=== PATIENT | female | born 1945 | race Caucasian/White ===

== ENCOUNTER 2017-12-26 05:14 | Inpatient (IN) ==
--- NOTE | 2017-12-21 17:39 | MH ---
cc: Ta Reyes MD DATE OF ADMISSION: 12/26/2017 Lolis Grijalva she is scheduled to be admitted to the hospital on 12/26/2017. ADMITTING DIAGNOSIS: Full-thickness rotator cuff tear of the right shoulder with associated osteoarthritis. HISTORY: The patient is a 72-year-old white female who has experienced almost a 3-year history of pain involving her right shoulder area. She has noted the gradual onset of soreness about the shoulder area unrelated to injury or unusual activity. She has undergone initial evaluation with her primary care physician who prescribed physical therapy and thereafter began to note increasing symptoms about the shoulder area for which she later underwent rheumatology evaluation for a history of rheumatoid arthritis and fibromyalgia. She was diagnosed as having bursitis and arthritis about her right shoulder area for which she was treated with cortisone injection that did prove to be of temporary benefit. Unfortunately, her symptoms recurred several months thereafter, at which time she received a repeat injection to the shoulder region. Further disposition was completed by her primary care physician, who referred the patient for neurology evaluation. She was found not to have any significant neurological disorder and a recommendation was thus made for physiatry evaluation. The patient later underwent MRI scan evaluation of her right shoulder, the results of which identified a 2.4 cm full-thickness tear of the distal anterior fibers of the supraspinatus tendon. There was marked thinning of the remaining portion of the supraspinatus tendon as well as marked thinning of the infraspinatus tendon with a high-grade partial tear of the subscapularis tendon. The teres minor was intact. Cystic changes along the lateral edge of the acromion were noted with mild chondral thinning of the glenoid and marked hypertrophy of the acromioclavicular joint. The biceps tendon was torn from its origin. The patient was subsequently seen by the undersigned physician in February 2017 and at that time reported ongoing discomfort involving her right shoulder area. The patient was treated with a repeat cortisone injection about the shoulder area and thereafter followed on an outpatient basis. Unfortunately, her symptoms became more pronounced with the passage of time, and when seen in followup disposition additional treatment options were reviewed. The pros and cons of continuing with conservative management versus operative intervention that would involve reverse shoulder arthroplasty were outlined. Emphasis was made regarding the fact that the decision to proceed with surgery would be left entirely to the patient's discretion. The patient considered her options in this regard and subsequently expressed her desire to proceed accordingly for which she is currently being admitted to the hospital. She is right hand dominant. PAST MEDICAL HISTORY: Hospitalizations and surgeries have included right total knee arthroplasty, abdominal hysterectomy, cystocele repair, bladder suspension, arthroscopic surgery of the left knee, followed by hemiarthroplasty, partial colon resection for endometriosis, tonsillectomy, bunionectomy of the right foot with first metatarsal osteotomy, arthrodesis of the 2nd toe and repair of a plantar plate rupture of the second metatarsophalangeal joint, upper endoscopy, colonoscopy with polyp excision, liver biopsy for history of fatty liver, bilateral second toe amputation following a failed hammertoe procedure and removal of a gouty deposit of the left foot. The patient has also been hospitalized for medical management of sepsis. MEDICAL ILLNESSES: Include fibromyalgia, osteoarthritis, GERD syndrome, hiatal hernia with reflux, hypertension, and urinary tract infection. CURRENT MEDICATIONS: 1. Cymbalta 30 mg daily. 2. Lyrica 100 mg twice daily. 3. Meloxicam 15 mg daily. 4. Nexium 40 mg twice daily. 5. Losartan 100 mg daily. 6. Hydrochlorothiazide 25 mg one-half tab daily. 7. Oxybutynin 5 mg twice daily. 8. Vitamin D 400 mg daily. 9. Vitamin E 400 mg twice daily. 10. Fish oil 1000 mg twice daily. 11. Cranberry tablets daily. 12. Metamucil p.r.n. 13. Tylenol p.r.n. 14. Magnesium supplement at bedtime. DRUG ALLERGIES TO CODEINE, LORTAB, AND TRAMADOL, all of which have caused nausea and vomiting, although she notes that when taking Phenergan prior to taking Lortab, she is able to tolerate the medication. She has tolerated oral Demerol as an additional pain medication. REVIEW OF SYSTEMS: She wears glasses. Denies headaches, seizure or syncope. Diminished auditory acuity. No tinnitus. No bleeding gums or dysphagia. 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 No sinus congestion or epistaxis. No cough, upper respiratory infection, pneumonia, or tuberculosis. No angina or heart disease. Appetite is reasonably good. Frequent constipation managed by [id number] products. No hepatitis, gallbladder disease or ulcers. There is a history of hemorrhoids. No recurrent urinary tract infections. No kidney stones. No fractures. No psychiatric illness. Remaining review of systems is unremarkable and noncontributory. FAMILY HISTORY: 50 years. is 80 years of age and described as being in reasonably good health, although having a history of low back pain. Two daughters, both described as being in good health, although one has a history of breast cancer being status post mastectomy. Family history is significant for diabetes, COPD, bladder cancer, heart disease and fibromyalgia. SOCIAL HISTORY: The patient completed a high school education with college credits. She has been retired for several years, having worked as a realtor. She denies active use of tobacco. Ethanol consumption in the form of an occasional glass of wine. VITAL SIGNS: VITAL SIGNS: Height 5 feet 6 inches, weight 199 pounds. GENERAL: An alert, oriented, and responsive 71-year-old white female who sits quietly upon the examination table in no obvious distress. HEAD, EARS, EYES, NOSE AND THROAT: Pupils are equally round and reactive to light. Extraocular movements full. Sclerae are clear. External nares clear. External auditory canals clear. Dental intact. Mucous membranes pink and moist. Pharynx clear. NECK: Supple. Active range of motion without appreciable pain. Carotid pulse is palpable bilaterally. Trachea midline. Thyroid without enlargement. LUNGS: Clear to auscultation and percussion. No CVA tenderness. No discomfort throughout the dorsolumbar spine. HEART: Regular rhythm. Grade 3/6 systolic murmur heard best at the right second intercostal space. ABDOMEN: Soft, nontender, bowel sounds present. PELVIC: Per primary care physician. EXTREMITIES: Right shoulder: A mild tenderness is elicited about the anterior aspect of the shoulder joint. The patient demonstrates obvious difficulty as she attempts to posture her right hand above her head level with limitations at the extremes of motion. No sensation of crepitation or instability about the glenohumeral joint. Drop arm test is positive. Carney sign is positive. Mild weakness of external rotation. Radar Systems Engineer strength intact. Sensory intact. NEUROLOGIC: Cranial nerves 2-12 grossly intact. IMPRESSION: Full-thickness rotator cuff tear, right shoulder with associated osteoarthritis. PLAN: Right reverse shoulder arthroplasty. The nature of the planned surgical procedure, the potential complications and risks associated, the expectations of surgery and the consent form were thoroughly reviewed with the patient in the presence of her prior to admission to the hospital. Lolis has indicated her full understanding regarding all of the above and given consent to proceed with treatment as outlined. Medical evaluation and clearance for surgery completed by her primary care physician, Dr. Gabe Vazquez. Ta Reyes MD NBS/ct , 04:33 PM , 04:49 PM
[2017-12-26] MEDS ORDERED: Chlorhexidine 4% Topical 120 APPLIC/120 ML Bottle TOPICAL SCH (05:45)
[2017-12-26] MEDS ORDERED: Chlorhexidine Gluconate 2% 1 Pack (2 Cloths) TOPICAL ONE (05:46)
[2017-12-26] MEDS ORDERED: Metoprolol Tartrate 25 MG Tablet PO ONE (05:46)
[2017-12-26] MEDS ORDERED: Sodium Chlor 0.9% Inj 500 ML IV.CONT ONE (06:00)
[2017-12-26] MEDS ORDERED: Tranexamic Acid Inj 1,000 MG in Sodium Chlor 0.9% Inj 100 ML IV.SIG SCH ×2 (06:00→08:41)
[2017-12-26] MEDS ORDERED: ceFAZolin 2 GM Premix Inj 2 GM/50 ML PIGGYBACK IV.SIG SCH (06:00)
[2017-12-26] MEDS ORDERED: Sodium Chlor 0.9% Inj 500 ML IV.SIG SCH (06:00)
[2017-12-26] MEDS ORDERED: Lidocaine PF 1% Inj 5 ML Vial ONE (06:34)
[2017-12-26] MEDS ORDERED: Lidocaine PF 1% Inj 5 ML Syringe OTHER ONE (06:54)
[2017-12-26] MEDS ORDERED: Phenylephrine/NS 1000 MCG/10ML Syringe IV.PUSH ONE (06:54)
[2017-12-26] MEDS ORDERED: Glycopyrrolate Inj 1 MG/5 ML Syringe IV.PUSH ONE (06:54)
[2017-12-26] MEDS ORDERED: Neostigmine Inj 5 MG/5 ML Syringe IV.PUSH ONE (06:54)
[2017-12-26] MEDS ORDERED: fentaNYL Citrate Inj 100 MCG/2 ML Ampul ONE (09:55)
[2017-12-26] MEDS ORDERED: Tranexamic Acid Inj 1,000 MG in Sodium Chlor 0.9% Inj 100 ML IV.SIG ONE (10:02)
[2017-12-26] MEDS ORDERED: Acetaminophen 325 MG Tablet PO PRN (10:02)
[2017-12-26] MEDS ORDERED: Bisacodyl 10 MG Supp RECTAL PRN (10:02)
[2017-12-26] MEDS ORDERED: HYDROmorphone PF Inj 1 MG/ML Ampul IV.PUSH PRN (10:02)
[2017-12-26] MEDS ORDERED: Aluminum/Magnesium/Simethacone Susp 30 ML UDC PO PRN (10:02)
[2017-12-26] MEDS ORDERED: Post-op Orders (for Pharmacy) OTHER STA (10:02)
[2017-12-26] MEDS ORDERED: Zolpidem Tartrate 5 MG Tablet PO PRN (10:02)
[2017-12-26] MEDS ORDERED: Naloxone Inj 0.4 MG/ML Vial IV.PUSH PRN (10:28)
[2017-12-26] MEDS ORDERED: HYDROmorphone PCA Inj 6 MG/30 ML PCA.VIAL PCA ONE (10:32)
--- NOTE | 2017-12-26 10:35 | MP ---
cc: Ta Reyes MD DATE OF OPERATION: 12/26/2017 DATE OF SERVICE: 12/26/2017 PREOPERATIVE DIAGNOSIS: Full-thickness rotator cuff tear of the right shoulder with associated osteoarthritis. POSTOPERATIVE DIAGNOSIS: Full-thickness rotator cuff tear of the right shoulder with associated osteoarthritis. PROCEDURE: Right reverse shoulder arthroplasty. SURGEON: Ta Reyes MD ANESTHESIA: General endotracheal. INDICATIONS: This is a 72-year-old white female with a 3 year history of right shoulder pain of gradual onset, unrelated to injury or unusual activity. She had previously been evaluated and treated by her primary care physician, at which time physical therapy had been initiated. Unfortunately, symptoms became more pronounced and the patient later underwent rheumatology evaluation for her history of rheumatoid arthritis and fibromyalgia. She was diagnosed as having bursitis and arthritis about the right shoulder area for which she was treated with cortisone injection that proved to be of only temporary benefit. Her symptoms lingered thereafter and repeat injections to the shoulder area were without evidence of improvement. She was later referred for neurology evaluation and was not found to have any significant neurological disorder and recommendation was thus made for physiatry evaluation. A subsequent MRI scan of her right shoulder identified a 2.4 cm full-thickness tear of the distal anterior fibers of the supraspinatus tendon with marked thinning of the remaining portion of the supraspinatus tendon as well as thinning of the infraspinatus tendon and a high-grade partial tear of the subscapularis tendon. The teres minor was intact. Cystic changes along the lateral edge of the acromion were noted as well. Mild chondral thinning of the glenoid and marked hypertrophy of the acromioclavicular joint. The biceps tendon was torn from its origin. The patient was later seen by the undersigned physician in 02/2017 and at that time she reported ongoing pain about her shoulder area. She received a repeat cortisone injection and was followed on an outpatient basis. Her symptoms became more pronounced with the passage of time and when seen in followup disposition, additional treatment options were reviewed. The pros and cons of continuing with conservative management versus operative intervention that would involve a reverse shoulder arthroplasty were outlined in detail. Emphasis was made regarding the fact that the decision to proceed with surgery would be left entirely to the patient's discretion. She considered her options in this regard and returned to the office in followup disposition indicating her desire to proceed accordingly and in compliance with her wishes, she was scheduled for admission at this time in order that the above be accomplished. FORMAT: Following the induction of satisfactory general anesthesia by endotracheal intubation as completed per the department of anesthesia, the patient was positioned upon the operating table in a modified beach chair configuration. The right shoulder and upper extremity proper were isolated with a U-drape, thereafter being prepped with Betadine solution and draped into a sterile field in the routine manner. Prior to initiation of the actual procedure the standard timeout protocol was completed. All parameters were appropriately addressed and confirmed by operating room personnel. A standard anterior approach to the shoulder was initiated through a sharp skin incision overlying the deltopectoral interval and be extended from the inferior margin of the clavicle, the axillary crease. The incision was developed through underlying subcutaneous tissue with hemostasis maintained by electrocautery. By deepening dissection, the deltopectoral interval was developed. The cephalic vein was identified distally and as the interval was further developed in a distal to proximal orientation the cephalic vein was retracted laterally with a cuff of deltoid tissue. Progressive dissection facilitated exposure of the anterior aspect of the capsular region of the shoulder joint. Circumflex vessels were clamped and coagulated. There was no appreciable remnant of the biceps tendon identified within the bicipital groove. With the shoulder maintained in an externally rotated orientation, the anterior capsule and segment of the subscapularis tendon was divided along the anatomic neck of the humerus, allowing the humeral head to be delivered into the wound. Examination revealed significant degenerative changes throughout the entire articular surface of the humeral head with complete erosion of articular cartilage and underlying subchondral bone exposed. An entry hole was initiated superiorly adjacent to the bicipital groove allowing orientation of sequential rasping of the proximal humerus from 7 through 12 mm. The 12 mm sizing was determined to be satisfactory. With the rasp in place the external guide was attached and oriented in approximately 30 degrees of retroversion. Thereafter, the humeral head was resected in its entirety and sequential broaching of the proximal humerus was accomplished, again from 7 through 12 mm. The 12 mm stem was determined to be a satisfactory fit. The covering plate was applied to the humeral implant and attention was redirected to the glenoid. Retractors were placed anterior, posterior, and superiorly to facilitate exposure. A limited additional release of the subscapularis tendon was accomplished and thereafter, the segment of the glenoid labrum, as well as the anterior and inferior glenohumeral ligaments, were resected, facilitating exposure of the glenoid and a 360 degree orientation. Hash blum were placed from the 12 to 6 o'clock position and the 9 to 3 o'clock position, orienting the central portion of the glenoid and thereafter, a guide pin was placed in approximately 10 degrees of inferior tilt over which the stepdown reamer was passed, creating a central peg hole. With the guide pin removed, a 25 mm glenosphere mini baseplate was firmly seated. Drill holes were placed facilitating placement of a 36 mm central screw, 25 mm locking screws were placed in the superior and inferior orientation and 15 mm screws in the anterior and posterior orientation. Thereafter, a 36 mm glenosphere with maximum inferior offset was attached to the baseplate in a stable manner. Attention returned to the proximal humerus. A trial reduction followed utilizing a 36 x 44 mm humeral bearing. The shoulder was reduced and carried through a passive range of motion with stability being demonstrated throughout the entire range of mobility. An open dislocation was completed, trial humeral components were removed, the humeral canal thoroughly irrigated with antibiotic saline solution and thereafter, a 12 mm mini humeral stem was firmly seated to which a 44 mm standard humeral tray with locking ring and a 36 x 44 mm humeral bearing insert attached, affixed to the mini stem and open reduction completed and repeat range of motion again noted stability as previously described. Final irrigation was accomplished and hemostasis maintained by electrocautery. Thereafter, the subscapularis tendon was repaired with #1 Ti-Cron sutures that had been previously inserted. The remaining portion of the wound was closed in layers in the routine manner, skin margins being reapproximated with a running subcuticular 3-0 Vicryl suture over which Steri-Strips were applied. Xeroform gauze and a bulky dry sterile dressing placed. The extremity being supported in an arm sling. Anesthesia was discontinued. The patient was transferred to a hospital bed and returned to the recovery room in satisfactory condition, having tolerated her operative procedure well. Estimated blood loss was approximately 150 mL as determined per anesthesia. All implants were of the Biomet woven wood shade assembler. Ta Reyes MD [facility]/ , 09:51 AM , 10:06 AM
--- NOTE | 2017-12-26 10:39 | XR ---
EXAM DATE: 12/26/2017 12:00 AM EDT AGE/SEX: 72 years / Female INDICATIONS: Post op right shoulder surgery. CLINICAL DATA: This is the patient's initial encounter. Patient reports that signs and symptoms have been present for 1 day and indicates a pain score of 0/10. MEDICAL/SURGICAL HISTORY: None. None. COMPARISON: POI, XR SHOULDER (MIN 4 VIEWS), RIGHT, 12/06/2015. . FINDINGS: Single view of the right shoulder was performed. Patient status post placement of a right shoulder pr osthesis. There is good position alignment of the prosthesis and the bony structures. The hardware is grossly intact. CONCLUSION: Good position and alignment on this postoperative study. Electronically signed by: Hay Bean MD 12/26/2017 10:37 AM EDT
[2017-12-26] MEDS: HYDROmorphone PCA Inj 6 MG/30 ML PCA.VIAL PCA PRN ×2 (10:40→14:57)
--- NOTE | 2017-12-26 13:32 | P.DCO ---
- Diagnosis (1) DJD of right shoulder Status: Acute - Occupational Therapy Order: Evaluate and treat, Improve ADL, Gross motor coordination, Fine motor coordination - Home Health Nursing Order: Wound care and dressing changes, Nursing assessment with vital signs - Home Health Aide Order: To assist in: Bathing and personal care, building serviceman and meal prep - Log Roller Order: To evaluate: Living conditions/environment, Support services Order: To provide: Long range planning, Community services - Case Management Consult Yes - Certification I have seen patient Lolis Grijalva on 12/26/17. My clinical findings support the need for the requested home health care services because: Limited ability to care for self, High risk of falls I certify that my clinical findings support that this patient is homebound because: Post-op weakness, Unsteady gait/balance, Unsafe to leave home unassisted
[2017-12-26] MEDS ORDERED: Dextrose 50% in Water 50 ML Vial IV.PUSH PRN (17:59)
[2017-12-26] MEDS ORDERED: CRANBERRY ASCORBIC ACID PO SCH (21:00)
[2017-12-26] MEDS: Allopurinol 100 MG Tablet PO SCH (21:14)
[2017-12-26] MEDS: Ascorbic Acid 500 MG Tablet PO SCH (21:14)
[2017-12-26] MEDS: Aspirin 325 MG Tablet PO SCH (21:14)
[2017-12-26] MEDS: Senna/Docusate Sodium 8.6/50 MG Tablet PO SCH (21:15)
[2017-12-27] MEDS: Insulin NovoLOG Aspart Correctional Sugar Inj SQ SCH ×4 (00:15→17:00)
[2017-12-27] MEDS: HYDROmorphone PCA Inj 6 MG/30 ML PCA.VIAL PCA PRN (06:28)
[2017-12-27] MEDS ORDERED: BIOTIN 1 MG PO SCH (09:00)
[2017-12-27] MEDS ORDERED: COENZYME Q10 50 MG PO SCH (09:00)
[2017-12-27] MEDS ORDERED: Non-Formulary Drug (Lactobacillus Combination No.4 [Probiotic] 3,000 MMU CELLS) PO SCH (09:00)
[2017-12-27] MEDS ORDERED: Non-Formulary Drug (Omega 3-Dha-Epa-Fish Oil [Fish Oil] 1 CAP) PO SCH (09:00)
[2017-12-27] MEDS ORDERED: Non-Formulary Drug (Losartan-Hydrochlorothiazide [Losartan-Hydrochlorothiazide] 1 TAB) PO SCH (09:00)
[2017-12-27 10:04] LABS: Hematocrit 37.2 % (35.0-46.0); Hemoglobin 12.2 gm/dL (11.6-15.3)
[2017-12-27] MEDS: Allopurinol 100 MG Tablet PO SCH (10:15)
[2017-12-27] MEDS: Ascorbic Acid 500 MG Tablet PO SCH (10:16)
[2017-12-27] MEDS: Senna/Docusate Sodium 8.6/50 MG Tablet PO SCH (10:17)
[2017-12-27] MEDS: Aspirin 325 MG Tablet PO SCH (10:17)
[2017-12-27 16:12] VITALS: BP 142/64; PULSE 93; RESP 17; TEMP 98.6; O2SAT 92
--- NOTE | 2017-12-28 10:22 | MD ---
cc: Ta Reyes MD,Addi Stinson MD DATE OF DISCHARGE: 12/27/2017 ADMITTING DIAGNOSIS: Full-thickness rotator cuff tear of the right shoulder with associated osteoarthritis. DISCHARGE DIAGNOSIS: Full-thickness rotator cuff tear of the right shoulder with associated osteoarthritis. HISTORY: A 72-year-old white female with a 3-year history of progressive right shoulder pain of gradual onset unrelated to injury or unusual activity. She has undergone rather extensive evaluation in the past including multiple modalities, but remaining symptomatic with pain about the shoulder area. Subsequent MRI scan identified a full thickness distal supraspinatus tendon tear with marked thinning of the remaining portion of the supraspinatus tendon and involvement of the infraspinatus tendon with a high-grade partial tear of the subscapularis tendon; teres minor intact. Patient had subsequently undergone orthopedic evaluation with the undersigned physician in February 2017. At that time, treatment options were reviewed. She was treated with a cortisone injection that did not provide her with any additional benefit and becoming increasingly more symptomatic with pain, had expressed her desire to proceed with further disposition involving a reverse shoulder arthroplasty was outlined in detail with emphasis being made that the decision to proceed with surgery would be left entirely to the patient's discretion. The patient expressed her desire to proceed accordingly and in compliance with her wishes, she was scheduled for admission at this time in order that the above be accomplished. For additional information with regard to the details of her present history, interested parties would be directed to be completed documentation of her history and physical examination. PHYSICAL EXAMINATION: MUSCULOSKELETAL: Her physical examination at the time of admission revealed mild tenderness about the anterior aspect of the right shoulder. There was obvious difficulty as attempts were made to actively posture of the right hand above the head level with limitations associated. No sensation of crepitation or instability. Drop arm test positive, Carney sign positive; weakness with external rotation. Barrel Planer strength Sensory intact. NEUROLOGIC: Grossly intact. HOSPITAL COURSE: Prior to admission to the hospital, the patient had undergone medical evaluation and clearance for surgery as completed by her primary care physician, Dr. Gabe Vazquez. She was taken to the operating room on 26 December 2017 and on that date underwent a right reverse shoulder arthroplasty completed in an uncomplicated manner. The patient was noted to have tolerated her operative procedure well. Her postoperative course stable thereafter. She was allowed progressive mobilization with occupational therapy intervention with instructions to limit external rotation to no more than 45 degrees for the initial 6 weeks postoperatively, but thereafter being permitted progressive mobilization as tolerated. On the first postoperative day, she was uncomfortable state. Her surgical wound intact. The patient had expressed her desire to for discharge home and thus plans were finalized in that regard and she was permitted discharge. She will be seen in office followup in approximately 4 weeks. CONDITION ON DISCHARGE: Stable. PROGNOSIS: Favorable. DISCHARGE MEDICATIONS: Included Demerol 50 mg, #30. The patient also instructed to take an adult aspirin tablet; 1 twice daily for 3 weeks. MD PADMA Tejeda/adan , 06:58 AM , 07:06 AM
== END 2017-12-27 18:35 | disposition home health service (06) ==
LOC: HSDI 05:14 → N06 14:34
PROVIDERS: ADMIT Orthopaedic Surgery; ATTEND Orthopaedic Surgery